=== PATIENT | male | born 1955 | race African-American/Black ===

== ENCOUNTER 2017-03-24 15:02 | Inpatient (IN) | payer MEDICAID, OTHER ==
[2017-03-24] MEDS ORDERED: Iopamidol 370 76% 50 ML VIAL FS ONE (16:57)
[2017-03-24] MEDS ORDERED: ISOVUE-370 76%-LOCM 1 ML ONE (16:57)
[2017-03-24 17:22] LABS: #Basophils 0.1 thou/uL (0.0-0.2); #Lymphocytes 1.8 thou/uL (1.20-3.40); #Monocytes 0.6 thou/uL (0.11-0.59); #Neutrophils 3.4 thou/uL (1.40-6.50); %Basophils 2.1 % (0.0-1.0); %Eosinophils 0.2 % (0.0-10.0); %Lymphocytes 30.5 % (21.0-51.0); %Monocytes 10.4 % (0.0-10.0); %Neutrophils 56.7 % (42.0-75.0); Hemoglobin 15.3 g/dL (14.0-18.0); Mean Corpuscular HGB CONC 32.2 g/dL (32.0-36.0); Mean Corpuscular Hemoglobin 29.4 pg (27.0-31.0); Mean Corpuscular Volume 91.2 fl (80.0-94.0); Mean Platelet Volume 6.5 fL (7.4-10.4); Platelet Count 215 thou/uL (130-400); RBC Distribution Width 12.5 % (11.5-14.5); Red Blood Cell (RBC) Count 5.21 mill/uL (4.70-6.10)
[2017-03-24 17:24] LABS: Bilirubin Negative (Negative); Blood, Urine Moderate (Negative); Clarity CLEAR (Clear); Glucose, Urine (Dipstick) 100 mg/dL (Negative); Leukocyte Negative (Negative); Nitrite Negative (Negative); Protein, Urine (Dipstick) 30 mg/dL (Neg-Trace); Specific Gravity, Urine 1.025 (1.002-1.036); Urobilinogen 0.2 mg/dL (0.2-1.0)
[2017-03-24 17:26] LABS: Bacteria/HPF None Seen HPF (None Seen); Pathc Cast-AUWi Flag 2.43 (0-2.49); RBC/HPF 0-3 HPF (0-3); Squamous Epithelial 0-3 HPF (0-3); WBC/HPF 0-3 HPF (0-3)
[2017-03-24 17:41] LABS: ALT (SGPT) 185 U/L (8-55); AST (SGOT) 513 U/L (5-34); Albumin 4.9 g/dL (3.5-5.0); Alkaline Phosphatase 201 U/L (40-150); Anion Gap 19 mmol/L (10-20); BUN (Urea Nitrogen) 10 mg/dL (8.4-25.7); Bilirubin, Total 0.5 mg/dL (0.2-1.2); Calc. Creatinine Clearance 0 mL/min (70-130); Calcium 9.9 mg/dL (7.8-10.44); Carbon Dioxide 26 mmol/L (22-29); Chloride 98 mmol/L (98-107); Estimated GFR-MDRD 77; Globulin 4.2 g/dL (2.4-3.5); Glucose 91 mg/dL (70-105); Potassium 4.3 mmol/L (3.5-5.1); Protein, Total 9.1 g/dL (6.0-8.3); Sodium 139 mmol/L (136-145)
[2017-03-24 17:46] LABS: Other Casts/LPF None Seen LPF (0-3 Hyaline)
[2017-03-24 17:47] LABS: PTT 27.3 SEC (22.9-36.1); Prothrombin Time 13.4 SEC (12.0-14.7)
[2017-03-24 18:00] LABS: CKMB 1.4 ng/mL (0-6.6)
--- NOTE | 2017-03-24 18:07 | RAD ---
PORTABLE CHEST: 03/24/17 HISTORY: Dizziness. Lungs are clear. Heart and mediastinum appear normal. Vascular markings normal. IMPRESSION: No acute finding. POS: [facility]
[2017-03-24] MEDS ORDERED: Morphine 2 MG/ML SYRINGE ONE ×2 (18:25→21:37)
[2017-03-24] MEDS ORDERED: Ondansetron HCl/PF 4 MG/2 ML Vial ONE (18:25)
--- NOTE | 2017-03-24 20:21 | CT ---
CT ABDOMEN AND PELVIS WITH CONTRAST 03/24/17 COMPARISON: None. HISTORY: Small bowel obstruction. Patient vomits every time he eats and complains of diarrhea and intermittent abdominal pain. TECHNIQUE: Multiple contiguous axial images were obtained in a CT of the abdomen and pelvis with contrast. PO co ntrast was administered. Coronal reformats were performed. FINDINGS: The patient is status post cholecystectomy. The liver, kidneys, adrenal glands, spleen, and pancreas are unremarkable. No free air, free fluid, or stranding changes are seen in the abdomen or pelvis. The small bowel is normal in caliber without significant abnormality. The colon is predominantly deco mpressed. The appendix is normal in size, but may have edema within the wall of the appendix. No abdo alie or pelvic lymphadenopathy are seen. The abdominal soft tissues and visualized inferior thorax are unremarkable. The osseous structures ar e unremarkable. IMPRESSION: 1. No evidence acute intra-abdominal/pelvic abnormality. 2. Nonspecific edema of the wall of the appendix without surrounding stranding changes to sugges t acute appendicitis. 3. The colon is decompressed. No obvious stranding changes are seen in the colon to suggest dive rticulitis. There are areas of the decompressed colon that looks slightly mass-like but is likely sec ondary to its decompressed state rather than a colon mass. POS: [facility]
--- NOTE | 2017-03-24 21:41 | ULT ---
RIGHT UPPER QUADRANT ULTRASOUND: 03/24/17 HISTORY: Right upper quadrant pain. The patient is post cholecystectomy. The liver is echogenic suggesting diffuse fatty infiltration. Th e pancreas is mostly obscured. The right kidney is imaged and appears unremarkable. The common bile duct is measured at 7 mm which is within normal range for post cholecystectomy status . IMPRESSION: 1. The liver is echogenic suggesting fatty infiltration. 2. Post cholecystectomy. POS: [facility]
[2017-03-24 23:18] LABS: Lactic Acid 3.8 mmol/L (0.5-2.2)
[2017-03-24 23:32] LABS: Acetaminophen Less than 6.0 mcg/mL (10.0-30.0)
[2017-03-25 00:13] LABS: HBCM Index 0.06 S/CO (0-0.79); HBSAg Index 0.17 S/CO (0-0.99); Hep A IgM AB Non-Reactive (NonReactive); Hep B Surf Ag Non-Reactive S/CO (NonReactive); Hep C IgG Ab Non-Reactive (NonReactive); Hep C Index 0.14 S/CO (0-0.79); Hepatitis B Core IGM Abs Non-Reactive (NonReactive)
[2017-03-25 00:28] LABS: Hep A IgM S/CO 0.14 S/CO (0-0.79)
[2017-03-25] MEDS ORDERED: Ondansetron ODT 4 MG TAB PO PRN (02:45)
[2017-03-25] MEDS ORDERED: Ondansetron HCl/PF 4 MG/2 ML Vial IVP PRN (02:45)
[2017-03-25] MEDS ORDERED: hydrALAZINE 20 MG/ML VIAL SLOW IVP PRN (02:45)
[2017-03-25] MEDS ORDERED: Calcium Carbonate 500 MG ChewTAB PO PRN (02:45)
[2017-03-25] MEDS: Sodium Chloride 0.9% 1,000 ML IV SCH ×3 (02:57→23:54)
[2017-03-25 03:00] VITALS: BMI 23.6
[2017-03-25 03:49] LABS: #Basophils 0.1 thou/uL (0.0-0.2); #Lymphocytes 1.7 thou/uL (1.20-3.40); #Monocytes 0.7 thou/uL (0.11-0.59); #Neutrophils 2.6 thou/uL (1.40-6.50); %Basophils 2.1 % (0.0-1.0); %Eosinophils 0.8 % (0.0-10.0); %Lymphocytes 33.7 % (21.0-51.0); %Monocytes 13.7 % (0.0-10.0); %Neutrophils 49.8 % (42.0-75.0); Mean Corpuscular HGB CONC 34.2 g/dL (32.0-36.0); Mean Corpuscular Hemoglobin 31.3 pg (27.0-31.0); Mean Corpuscular Volume 91.6 fl (80.0-94.0); Mean Platelet Volume 6.3 fL (7.4-10.4); Platelet Count 166 thou/uL (130-400); RBC Distribution Width 12.4 % (11.5-14.5); Red Blood Cell (RBC) Count 4.49 mill/uL (4.70-6.10); White Blood Cell (WBC) Count 5.2 thou/uL (4.8-10.8)
[2017-03-25 04:00] LABS: Lactic Acid 1.2 mmol/L (0.5-2.2)
[2017-03-25 04:11] LABS: ALT (SGPT) 144 U/L (8-55); AST (SGOT) 287 U/L (5-34); Albumin 4.2 g/dL (3.5-5.0); Alkaline Phosphatase 172 U/L (40-150); Anion Gap 15 mmol/L (10-20); BUN (Urea Nitrogen) 9 mg/dL (8.4-25.7); Bilirubin, Direct 0.5 mg/dL (0.1-0.3); Bilirubin, Total 0.9 mg/dL (0.2-1.2); CRP (Inflammatory) Less than 0.50 mg/dL (= or < 0.5); Calc. Creatinine Clearance 72 mL/min (70-130); Calcium 8.7 mg/dL (7.8-10.44); Carbon Dioxide 24 mmol/L (22-29); Chloride 99 mmol/L (98-107); Estimated GFR-MDRD 82; Glucose 87 mg/dL (70-105); Protein, Total 7.5 g/dL (6.0-8.3); Sodium 134 mmol/L (136-145)
[2017-03-25] MEDS: traMADol HCl 50 MG TAB PO PRN ×2 (04:31→12:16)
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
[2017-03-25] MEDS: Famotidine 20 MG TAB PO SCH ×2 (08:37→20:02)
[2017-03-25] MEDS ORDERED: FLU VACC QS2017-18 36 mo. & older 0.5 ML SYRINGE IM ONE (09:00)
[2017-03-25] MEDS ORDERED: Prevnar 13-Val Conj/PF 0.5 ML SYRINGE IM ONE (09:00)
[2017-03-25] MEDS ORDERED: Pantoprazole 40 MG VIAL IVP SCH (12:00)
[2017-03-25] MEDS ORDERED: OLANZapine 5 MG TAB PO SCH (16:30)
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
--- NOTE | 2017-03-25 17:40 | CON ---
DATE OF CONSULTATION: 03/25/2017 REASON FOR CONSULTATION: Hepatitis. HISTORY OF PRESENT ILLNESS: A 61-year-old with longstanding history of HIV history positive status a nd some form of psychosis, on Zyprexa, and well controlled as well as excessive use of alcoholic beve rages in the past, who was brought in because of new onset of fatigue, vomiting, abdominal discomfort , diarrhea. Initial evaluation with temperature 98.9, respiratory rate 18, pulse 77, blood pressure 140/70, O2 sat 97%. He had abnormal liver function tests, CT abdomen and pelvis not specific, and wa s given morphine and IV fluids. Currently, he is feeling better, has not vomited today. No headache s, visual symptoms, sore throat, odynophagia, dysphagia. No cough or sputum production or chest pain . Abdominal discomfort in the right upper quadrant and epigastric area. Still with some diarrhea. No genitourinary symptoms. No joint symptoms. PAST MEDICAL HISTORY: 1. Longstanding HIV infection with adequate control viremia for many many years now with excellent c ompliance; CD4 cell count was within normal range, I think it was above 500; viral load has been cons istently suppressed on Stribild which he has taken since 2014. 2. History of alcohol dependency syndrome. 3. Schizophrenia, well controlled with Zyprexa. MEDICATIONS: Zyprexa, Stribild. ALLERGIES: None. SOCIAL HISTORY: Drinks daily, had been drinking excessively, tried to cut down recently. FAMILY HISTORY: Noncontributory. PHYSICAL EXAMINATION: VITAL SIGNS: T-max 98.2, blood pressure 150/70, pulse 63, respirations 18, O2 sat 96%. GENERAL: No distress. HEENT: Ocular movements are conjugate. Oral cavity is normal. No icterus. LUNGS: Clear. HEART: S1 and S2, regular rate. ABDOMEN: With slight tenderness in the right upper quadrant. The liver edge about 2 cm below right costal margin. No bladder distention. : No genital abnormalities. EXTREMITIES: No joint inflammatory activity. Moves all extremities equally. No edema. Pulses 2+ i n dorsalis pedis. NEUROLOGIC: Cognitive function appears to be intact. Strength in upper and lower extremities is pre served. LABORATORY DATA: White cell count is 5.2, hemoglobin 14, platelets 166, 49% neutrophils, 32% lymphoc ytes, 13% monocytes. INR 1.0. Sodium 134. Admit AST 513, ALT 185, alkaline phosphatase 201. Now t he AST 287, ALT 144, alkaline phosphatase 172. Initial bilirubin is 0.5 and now 0.9. The albumin is 4.9, globulin 4.2, TSH 1.3. Urinalysis with 0-3 wbc's. Hepatitis serology nonreactive. Microbiolo gy with antigen positive. Toxin was not detected by PCR. ASSESSMENT: 1. Longstanding human immunodeficiency virus infection with excellent control, on Stribild for the p ast 2 years. 2. Alcohol dependency syndrome. 3. Likely alcoholic hepatitis. Possibility of Zyprexa induced liver disease is another consideratio n, but typically ALT is higher, in that case Stribild is not usually associated with liver toxicity, it is unlikely to be causing the patient's symptoms. Abstinence from alcoholic beverages probably is the most important measure to be undertaken. Liver biopsy may be considered to confirm the diagnosi s or just withhold just abstinence and then repeat followup liver function in the outpatient setting.
[2017-03-26 04:47] LABS: ALT (SGPT) 86 U/L (8-55); AST (SGOT) 98 U/L (5-34); Albumin 3.9 g/dL (3.5-5.0); Alkaline Phosphatase 133 U/L (40-150); Anion Gap 10 mmol/L (10-20); BUN (Urea Nitrogen) 5 mg/dL (8.4-25.7); Bilirubin, Direct 0.4 mg/dL (0.1-0.3); Bilirubin, Total 0.9 mg/dL (0.2-1.2); Calc. Creatinine Clearance 86 mL/min (70-130); Calcium 8.9 mg/dL (7.8-10.44); Carbon Dioxide 26 mmol/L (22-29); Chloride 105 mmol/L (98-107); Estimated GFR-MDRD Greater than 90; Glucose 93 mg/dL (70-105); Lipase 11 U/L (8-78); Potassium 4.1 mmol/L (3.5-5.1); Sodium 137 mmol/L (136-145)
[2017-03-26 05:50] LABS: Band 4 % (5-11); Hemoglobin 13.5 g/dL (14.0-18.0); Lymphocytes 56 % (21-51); MDiff Complete? YES; Mean Corpuscular HGB CONC 33.8 g/dL (32.0-36.0); Mean Corpuscular Hemoglobin 31.3 pg (27.0-31.0); Mean Corpuscular Volume 92.5 fl (80.0-94.0); Mean Platelet Volume 6.6 fL (7.4-10.4); Monocytes 12 % (0-10); Neutrophil 28 % (42-75); Platelet Count 150 thou/uL (130-400); RBC Distribution Width 12.2 % (11.5-14.5); Red Blood Cell (RBC) Count 4.31 mill/uL (4.70-6.10); White Blood Cell (WBC) Count 4.5 thou/uL (4.8-10.8)
[2017-03-26] MEDS: Famotidine 20 MG TAB PO SCH (08:52)
[2017-03-26] MEDS: Sodium Chloride 0.9% 1,000 ML IV SCH (08:53)
[2017-03-26] MEDS ORDERED: Folic Acid 1 MG TAB PO SCH (09:00)
[2017-03-26] MEDS ORDERED: OLANZapine 5 MG TAB PO SCH ×2 (09:00→21:00)
[2017-03-26] MEDS ORDERED: Multivitamin W/ Minerals 1 TAB PO SCH (09:00)
[2017-03-26] MEDS ORDERED: Pantoprazole 40 MG VIAL IVP SCH (09:00)
--- NOTE | 2017-03-26 12:51 | PRG ---
DATE OF SERVICE: 03/26/2017 SUBJECTIVE: Mr. Hernandez is feeling better. He has had no vomiting today or diarrhea. He had a bianka le bit yesterday. OBJECTIVE: VITAL SIGNS: Temperature is 98, pulse 71 and blood pressure 144/74. ABDOMEN: Slightly protuberant, but no shifting dullness or fluid wave. There is no tenderness. The re is no rebound or guarding. Bowel sounds are positive. LABORATORY STUDIES: White count 5.4, hemoglobin 13 and platelet count 150. Bilirubin 0.4, AST and A LT are 98 and 86. Hepatitis A, B, and C negative. ASSESSMENT: 1. Elevated liver enzymes, improving. I suspect this is related to alcohol abuse. I do not think t his was related to the Stribild, which he has been on since 2014. I have discussed this with Dr. Palomo burnette and he feels the same way. 2. Longstanding human immunodeficiency virus with excellent control. RECOMMENDATIONS: Abstinence from alcohol. Continue multivitamin, thiamine, and folate. Repeat live r function test in an outpatient setting. If they go up again in this pattern, it may be reasonable to consider biopsy, but I would hold off at this time as they are improving rapidly.
[2017-03-26] MEDS ORDERED: Amlodipine 5 MG TAB PO SCH (16:45)
[2017-03-26 16:54] VITALS: BP 186/77; TEMP 97.8
--- NOTE | 2017-03-27 09:59 | DIS ---
DATE OF DISCHARGE: 03/26/2017 DISCHARGE DISPOSITION: Home. FOLLOWUP: Follow up with Dr. Keys next week. Follow up at GI clinic after a week or two. ALLERGIES: No known drug allergies. DISCHARGE MEDICATIONS: 1. Zyprexa 10 mg daily. 2. Amlodipine 5 mg daily due to elevated blood pressure. 3. Pepcid 20 mg b.i.d. 4. Folic acid, thiamine and multivitamins daily. INPATIENT CONSULTANTS: Infectious Disease, Dr. Keys; GI; Dr. Frank. The patient was seen and examined on the day of discharge, denies any new complaints, no chest pain, shortness of breath, palpitations reported. Repeat liver function tests next week is recommended. Primary care physician is advised to arrange a nd follow. The patient will follow up with primary care physician, Dr. Arevalo after a week. The patient was advised to monitor his blood pressure on a daily basis. If his blood pressure is yaneli vated, he was advised to increase the dose of amlodipine. His blood pressure this morning was 139/75 . BRIEF HOSPITAL COURSE: The patient is a 61-year-old male with HIV, currently on Str ibild and schizophrenia on Zyprexa, who presented to the emergency room with nausea, vomiting, and ab dominal discomfort of 2 days duration. Please refer to the history and physical dated 03/25/2017 for further details. The patient was admitted to the hospital with the diagnosis of nausea, vomiting with abdominal discom fort, probably secondary to abnormal LFTs. The possibilities of abnormal LFTs included alcoholic hep atitis versus medication induced. Stribild was held. He remained on Zyprexa during the hospital sta y. His LFTs have significantly improved. On the day of discharge his direct bilirubin is 0.4 with t otal bilirubin 0.9, AST 98, ALT of 86. On admission, his total bilirubin was 0.58, AST 513, ALT 185 with alkaline phosphatase 201. His TSH was normal. His cortisol level was 14.2. He was evaluated b y Gastroenterology, Dr. Frank as well as Infectious Disease, Dr. Keys. Dr. Keys advised to hold S tribild for now. He will follow up with Dr. Keys next week for possible new HIV medication. He als o had lactic acidosis on admission that has resolved. Alcohol abstinence was recommended by GI. He was advised to follow up at GI Clinic if his LFTs worse. He may need a liver biopsy at that time. Stool for C. difficile was positive for antigen; however toxin was negative. I discussed with Dr. Mcdonald who recommended no treatment. Stool lactoferrin, parasite and E. coli was negative. Influenza t esting was negative. FINAL DIAGNOSES: 1. Nausea, vomiting, diarrhea with abdominal discomfort of unclear etiology, resolved. 2. Abnormal liver function tests, probably secondary to alcoholic hepatitis versus medication induce d, probably Stribild. Stribild will be discontinued. 3. Lactic acidosis, probably secondary to dehydration, resolved. 4. Chronic kidney disease stage 2. 5. Human immunodeficiency virus. 6. Schizophrenia. 7. Elevated blood pressure on admission. He probably has hypertension. He was started on amlodipin e. He was counseled on blood pressure with frequent monitoring. Plan of care was discussed with the patient and the family in detail. Total time coordinating the discharge of this patient was 35 minutes including counseling of alcohol.
--- NOTE | 2017-03-31 22:42 | EKG ---
Test Reason : Blood Pressure : / mmHG Vent. Rate : 068 BPM Atrial Rate : 068 BPM P-R Int : 176 ms QRS Dur : 074 ms QT Int : 392 ms P-R-T Axes : 080 009 019 degrees QTc Int : 416 ms Normal sinus rhythm Normal ECG Confirmed by LEILANI RAMOS ([id number]), makeup editor PAL SAXENA ([id number]) on 03/31/2017 10:41:06 PM Referred By: Confirmed By:LEILANI RAMOS
== END 2017-03-26 16:46 | disposition home or self-care (01) | DRG 977 ==
LOC: ERS 15:02 → T4-A 03-25 00:06
PROVIDERS: ADMIT Internal Medicine; ATTEND Internal Medicine
DX: E86.0 Dehydration (principal); B20 Human immunodeficiency virus [HIV] disease; E87.2 Acidosis; K70.10 Alcoholic hepatitis without ascites; R11.2 Nausea with vomiting, unspecified; Z79.899 Other long term (current) drug therapy; F20.9 Schizophrenia, unspecified; R03.0 Elevated blood-pressure reading, without diagnosis of hypertension; F10.20 Alcohol dependence, uncomplicated; R19.7 Diarrhea, unspecified; T50.995A Adverse effect of other drugs, medicaments and biological substances, initial encounter; I12.9 Hypertensive chronic kidney disease with stage 1 through stage 4 chronic kidney disease, or unspecified chronic kidney disease; N18.2 Chronic kidney disease, stage 2 (mild)
CPT/HCPCS: 36415; 71045; 74177; 76705; 80048; 80053; 80074; 80076; 80307; 81003; 81015; 82140; 82533; 82553; 83605; 83630; 83690; 83735; 84443; 84484; 85025; 85610; 85730; 86140; 87045; 87046; 87081; 87324; 87328; 87329; 87449; 87493; 87804; 87899; 93005; 96361; 96374; 96375; 96376; C9113; J2270; J2405

== ENCOUNTER 2017-10-29 11:16 | Outpatient (CLI) | payer OTHER | END 2017-10-29 11:17 | disposition home or self-care (01) | LOC: BICRAD 11:16 | PROVIDERS: ATTEND Internal Medicine Infectious Disease | DX: M25.519 Pain in unspecified shoulder (principal); M50.31 Other cervical disc degeneration, high cervical region | CPT/HCPCS: 71046; 72040 ==

== ENCOUNTER 2018-08-11 11:20 | Emergency (ER) | payer OTHER | END 2018-08-11 12:10 | disposition home or self-care (01) | LOC: ERS 11:20 | DX: S61.214A Laceration without foreign body of right ring finger without damage to nail, initial encounter (principal); L03.011 Cellulitis of right finger; X58.XXXA Exposure to other specified factors, initial encounter | CPT/HCPCS: 99283 ==

== ENCOUNTER 2019-11-13 04:54 | Emergency (ER) | payer OTHER ==
[2019-11-13 05:57] LABS: Bacteria/HPF 4+ HPF (None Seen); Bilirubin Negative (Negative); Blood, Urine 2+ (Negative); Clarity Turbid (Clear); Glucose, Urine (Dipstick) Normal (Negative); Ketone, Urine 10 mg/dL (Negative); Leukocyte 500 Leu/uL (Negative); Mucous/LPF 3+ LPF (<2+); Nitrite Negative (Negative); Protein, Urine (Dipstick) 30 mg/dL (Neg-Trace); RBC/HPF Greater than 50 HPF (0-3); Specific Gravity, Urine 1.017 (1.002-1.036); Squamous Epithelial 0-3 HPF (0-3); Urobilinogen Normal mg/dL (Less than 2); WBC/HPF Greater than 50 HPF (0-3)
[2019-11-13] MEDS ORDERED: cefTRIAXone\\ROCEPHIN 1 GM VIAL ONE (06:13)
[2019-11-13 06:19] LABS: ALT (SGPT) 43 U/L (8-55); AST (SGOT) 70 U/L (5-34); Albumin 4.2 g/dL (3.4-4.8); Alkaline Phosphatase 92 U/L (40-110); Anion Gap 14 mmol/L (10-20); BUN (Urea Nitrogen) 9 mg/dL (8.4-25.7); Bilirubin, Total 1.2 mg/dL (0.2-1.2); Calc. Creatinine Clearance 0 mL/min (70-130); Calcium 9.5 mg/dL (7.8-10.44); Carbon Dioxide 25 mmol/L (23-31); Chloride 100 mmol/L (98-107); Estimated GFR-MDRD 78; Globulin 3.6 g/dL (2.4-3.5); Glucose 87 mg/dL (80-115); Lipase 19 U/L (8-78); Potassium 3.3 mmol/L (3.5-5.1); Protein, Total 7.8 g/dL (5.8-8.1); Sodium 136 mmol/L (136-145)
[2019-11-13 06:39] LABS: Band 27 % (5-11); Hemoglobin 14.1 g/dL (14.0-18.0); Lymphocytes 4 % (21-51); MDiff Complete? YES; Mean Corpuscular HGB CONC 33.4 g/dL (32.0-36.0); Mean Corpuscular Hemoglobin 31.1 pg (27.0-31.0); Mean Corpuscular Volume 93.1 fL (78.0-98.0); Monocytes 4 % (0-10); Neutrophil 65 % (42-75); Platelet Count 113 thou/uL (130-400); Platelet Morphology Comment Appears Decreased; RBC Distribution Width 12.7 % (11.5-14.5); RBC Morphology Normal; Red Blood Cell (RBC) Count 4.52 mill/uL (4.70-6.10); White Blood Cell (WBC) Count 13.4 thou/uL (4.8-10.8)
--- NOTE | 2019-11-13 09:07 | RAD ---
CHEST 1 VIEW: Date: 11/13/2019 INDICATION: History of fever. COMPARISON: Prior exam dated 03/24/2017. FINDINGS: Lungs are clear. Heart size is normal. No pleural effusion or pneumothorax is evident. No acute osseo us abnormality is noted. IMPRESSION: No acute cardiopulmonary abnormality. POS: [facility]
== END 2019-11-13 06:53 | disposition home or self-care (01) ==
LOC: ERS 04:54
DX: N39.0 Urinary tract infection, site not specified (principal); F20.9 Schizophrenia, unspecified; Z79.899 Other long term (current) drug therapy
CPT/HCPCS: 36415; 71045; 80053; 81003; 81015; 83690; 85025; 87077; 87086; 87186; 96374; J0696

== ENCOUNTER 2020-10-26 12:53 | Emergency (ER) | payer OTHER ==
[2020-10-26] MEDS ORDERED: Iopamidol-370 76% 500 ML 1 ML ONE (13:34)
[2020-10-26 13:54] LABS: #Lymphocytes 0.8 thou/uL (1.20-3.40); #Monocytes 0.5 thou/uL (0.11-0.59); #Neutrophils 4.9 thou/uL (1.40-6.50); %Basophils 0.2 % (0.0-1.0); %Eosinophils 0.4 % (0.0-10.0); %Lymphocytes 13.1 % (21.0-51.0); %Monocytes 8.1 % (0.0-10.0); %Neutrophils 78.1 % (42.0-75.0); Hemoglobin 13.5 g/dL (14.0-18.0); Mean Corpuscular HGB CONC 34.3 g/dL (32.0-36.0); Mean Corpuscular Volume 87.5 fL (78.0-98.0); Platelet Count 116 thou/uL (130-400); RBC Distribution Width 14.5 % (11.5-14.5); White Blood Cell (WBC) Count 6.3 thou/uL (4.8-10.8)
[2020-10-26 14:12] LABS: ALT (SGPT) 18 U/L (8-55); AST (SGOT) 39 U/L (5-34); Alkaline Phosphatase 77 U/L (40-110); Anion Gap 14 mmol/L (10-20); BUN (Urea Nitrogen) 8 mg/dL (8.4-25.7); Bilirubin, Total 0.4 mg/dL (0.2-1.2); Calc. Creatinine Clearance 0 mL/min (70-130); Calcium 8.8 mg/dL (7.8-10.44); Carbon Dioxide 24 mmol/L (23-31); Chloride 101 mmol/L (98-107); Globulin 3.7 g/dL (2.4-3.5); Glucose 114 mg/dL (80-115); Potassium 4.4 mmol/L (3.5-5.1); Protein, Total 7.7 g/dL (5.8-8.1); Sodium 135 mmol/L (136-145)
[2020-10-26 14:57] LABS: Acetaminophen Less than 6.0 mcg/mL (10.0-30.0); Alcohol Less than 10 mg/dL (Less than 10); Magnesium 2.3 mg/dL (1.6-2.6); Salicylate Less than 8.0 mg/dL (15.0-30.0)
[2020-10-26] MEDS ORDERED: levETIRAcetam 500 MG TAB PO SCH (15:15)
[2020-10-26 16:45] LABS: Bacteria/HPF None Seen HPF (None Seen); Bilirubin Negative (Negative); Blood, Urine Trace (Negative); Clarity Clear (Clear); Glucose, Urine (Dipstick) Normal (Negative); Ketone, Urine 20 mg/dL (Negative); Leukocyte Negative Leu/uL (Negative); Nitrite Negative (Negative); Protein, Urine (Dipstick) Negative (Neg-Trace); RBC/HPF 0-3 HPF (0-3); Specific Gravity, Urine 1.033 (1.002-1.036); Squamous Epithelial 0-3 HPF (0-3); Urobilinogen Normal mg/dL (Less than 2); WBC/HPF 0-3 HPF (0-3); pH, Urine 6.5 (5.0-9.0)
[2020-10-26 16:53] LABS: Amphetamine Not Detected (NotDetected); Barbiturates Screen Not Detected (NotDetected); Benzodiazepine Screen Not Detected (NotDetected); Cocaine Metabolite Screen Not Detected (NotDetected); Methadone Not Detected (NotDetected); Methamphetamine Not Detected (NotDetected); Opiate Screen Not Detected (NotDetected); Oxycodone Screen Not Detected (NotDetected); Phencyclidine (PCP) Not Detected (NotDetected); THC/Cannabinoid Screen Not Detected (NotDetected); Tricyclic Screen Not Detected (NotDetected)
== END 2020-10-26 17:02 | disposition home or self-care (01) ==
LOC: ERS 12:53
DX: R56.9 Unspecified convulsions (principal); Z21 Asymptomatic human immunodeficiency virus [HIV] infection status
CPT/HCPCS: 36415; 70470; 71045; 80053; 80306; 80307; 81003; 81015; 83605; 83690; 83735; 84443; 84484; 85025; 86140; 93005; Q9967

== ENCOUNTER 2021-11-04 22:55 | Emergency (ER) | payer MEDICARE, OTHER ==
[2021-11-04] MEDS ORDERED: Acetaminophen 500 MG TAB ONE (23:02)
[2021-11-04 23:58] LABS: Hemoglobin 13.4 g/dL (14.0-18.0); Mean Corpuscular HGB CONC 32.8 g/dL (32.0-36.0); Mean Corpuscular Hemoglobin 28.5 pg (27.0-31.0); Mean Corpuscular Volume 86.8 fL (78.0-98.0); Platelet Count 127 thou/uL (130-400); RBC Distribution Width 13.5 % (11.5-14.5); White Blood Cell (WBC) Count 4.3 thou/uL (4.8-10.8)
[2021-11-05 00:15] LABS: Band 15 % (5-11); Eosinophils 1 % (0-10); Lymphocytes 18 % (21-51); MDiff Complete? YES; Monocytes 19 % (0-10); Neutrophil 35 % (42-75); Platelet Morphology Comment Appears Adequate; RBC Morphology Normal; Reactive Lymphocytes 11 % (0-10)
[2021-11-05 00:18] LABS: ALT (SGPT) 18 U/L (8-55); AST (SGOT) 31 U/L (5-34); Albumin 4.1 g/dL (3.4-4.8); Alkaline Phosphatase 55 U/L (40-110); Anion Gap 15 mmol/L (10-20); BUN (Urea Nitrogen) 12 mg/dL (8.4-25.7); Bilirubin, Total 0.3 mg/dL (0.2-1.2); Calc. Creatinine Clearance 0 mL/min (70-130); Calcium 8.9 mg/dL (7.8-10.44); Carbon Dioxide 25 mmol/L (23-31); Chloride 96 mmol/L (98-107); Estimated GFR 51; Globulin 3.2 g/dL (2.4-3.5); Glucose 116 mg/dL (80-115); Potassium 3.8 mmol/L (3.5-5.1); Protein, Total 7.3 g/dL (5.8-8.1); Sodium 132 mmol/L (136-145)
== END 2021-11-05 03:14 | disposition home or self-care (01) ==
LOC: ERS 22:55
DX: R50.9 Fever, unspecified (principal); B20 Human immunodeficiency virus [HIV] disease; R56.9 Unspecified convulsions
CPT/HCPCS: 36415; 71045; 80053; 85025